=== PATIENT | female | born 1980 | race Caucasian/White ===

== ENCOUNTER → 2017-09-14 10:48 | Outpatient (CLI) | payer MEDICAID, SELFPAY ==
[2017-09-22 13:05] LABS: HPV APTIMA, High Risk Negative (Negative); HPV Reflexed? YES, CHARGE PATIENT
== END ==
PROVIDERS: Visit Provider Obstetrics & Gynecology
DX: Z12.4 Encounter for screening for malignant neoplasm of cervix (principal)
CPT/HCPCS: 87624; 88175; G0145

== ENCOUNTER → 2017-10-30 18:30 | Outpatient (CLI) | payer MEDICAID, SELFPAY ==
--- NOTE | 2017-10-30 | ECC_PTH ---
PATIENT: HELEN MARQUEZ LOC: [facility] U#:[id number] AGE/SX: 44/F ROOM: RE10/30/[address]: Dr. Khurram Ramos MD : 1980 BED: DIS: SPEC #: [id number] RECD: 10/30/17 15:23 STATUS: RUTH GABRIEL #: [id number] RAAD: 10/30/17 00:[address]: Khurram Ramos DEPT: SURGICAL PATHOLOGY RECD BY: Tommie Jovel ENTERED: 10/31/17 08:27 SP TYPE: ECC LAURIE DR: No Primary Care Phys Tissues: A - Endocervical B - Uterine cervix, NOS Procedures: Surgery Specimen Level IV HEADER OPERATION: Colposcopy PRE-OP DIAGNOSIS: LGSIL pap, LMP 10/17/17; Mild dysplasia TISSUE SUBMITTED: A. ECC, B. Cervical biopsy at 6 o?clock MICROSCOPIC DIAGNOSIS A. ECC: Fragments of benign endocervical epithelium, benign endocervical mucosa with chronic inflammation, blood and mucous, negative for dysplasia. B. Cervix, 6 o?clock, biopsy: Focal changes consistent with HPV cytopathic effects. Focal acute and chronic inflammation. See comment. NAYELY:catarino 11/01/17 COMMENT B. The results of immunohistochemistry ([id number]) for surrogate HPV marker (p16) will be reported separately. MICROSCOPIC DESCRIPTION Slides are reviewed. GROSS DESCRIPTION A - Received in fixative is one container labeled with the patient's name and designated ECC. The specimen consists of multiple irregular fragments of light rodney mucoid material that in aggregate measure 1 x 1 x 0.1 cm. The specimen is totally submitted in one cassette. B - Received in fixative is one container labeled with the patient's name and designated cervical biopsy at 6 o'clock. The specimen consists of multiple irregular fragments of light rodney soft tissue that in aggregate measure 1 x 0.5 x 0.1 cm. The specimen is totally submitted in one cassette. / AM:catarino 10/31/17 TC:5 CPT: 55867 x2
--- NOTE | 2017-10-30 | IMM_PTH ---
PATIENT: HELEN MARQUEZ LOC: [facility] U#:[id number] AGE/SX: 44/F ROOM: RE10/30/[address]: Dr. Khurram Ramos MD : 1980 BED: DIS: SPEC #: [id number] RECD: 11/01/17 13:50 STATUS: [facility] #: [id number] RAAD: 10/30/17 00:[address]: Khurram Ramos DEPT: IMMUNOHISTOCHEMISTRY RECD BY: Janet Kurtz Tissues: B - Uterine cervix, NOS Procedures: p16 (initial) KI-67 (add) PHYSICIAN & INSTITUTION [place] [id number] SPECIMEN INFORMATION: Tissue Source: B ? Cervical biopsy at 6 o?clock Clinical Info: LGSIL; mild dysplasia Specimen Number: [id number] B CPT code: 96098, 03143 METHODOLOGY: Deparaffinized sections of prefer/formalin-fixed tissue or PAP/DQ stained slides are incubated with monoclonal/polyclonal antibodies/oligonucleotide probes. Localization is made via biotin free immunoperoxidase method. Appropriate controls are performed and reacted as expected. Results on target cell population are indicated in the following table: RESULTS: ANTIBODY / CLONE RESULT Block B P16 (E6H4) positive, focal and patchy Ki-67 (30-9) positive, low These tests were developed and their performance characteristics determined by [facility]. They may not have been cleared or approved by the [place] Food and Drug Administration. The FDA has determined that such clearance or approval is not necessary. INTERPRETATION: B. Cervix, 6 o?clock, biopsy: Focal changes consistent with HPV cytopathic effects. SJ:catarino 11/01/17
== END ==
PROVIDERS: Visit Provider Obstetrics & Gynecology
DX: N87.0 Mild cervical dysplasia (principal)
CPT/HCPCS: 88305; 88341; 88342

== ENCOUNTER → 2018-11-28 14:43 | Outpatient (CLI) | payer OTHER, SELFPAY ==
[2014-09-29 08:50] VITALS: BMI 23.9
[2018-12-07 12:07] LABS: HPV APTIMA, High Risk Positive (Negative)
== END ==
PROVIDERS: Visit Provider Obstetrics & Gynecology
DX: Z12.4 Encounter for screening for malignant neoplasm of cervix (principal)
CPT/HCPCS: 88175; G0145